=== PATIENT | female | born 1945 | race Caucasian/White ===

== ENCOUNTER 2021-08-17 12:43 | Emergency (ER) | payer OTHER, BC ==
[~2021-08-17] VITALS: Ht 165.1 cm; Wt 68.0 kg
[2021-08-17 13:46] VITALS: BP 159/75
[2021-08-17] MEDS ORDERED: HYDROCODON-ACE1 EAC7 PO (14:42)
[2021-08-20] MEDS ORDERED: PRINIVIL40 MG PO (15:30)
[2021-08-20] MEDS ORDERED: VITAMIN D325 MC3 PO (15:31)
[2021-08-20] MEDS ORDERED: CALCIUM + VITA1 EACH PO (15:31)
[2021-08-20] MEDS ORDERED: ASA81BEC PO (15:31)
[2021-08-20] MEDS ORDERED: MYVITALIFE1 EACH PO (15:31)
[2021-08-20] MEDS ORDERED: HYDROCODON-ACE1 EAC7 PO (15:32)
== END 2021-08-17 14:53 | disposition home or self-care (01) ==
LOC: ER 12:43
DX: M25.561 Pain in right knee (principal); W11.XXXA Fall on and from ladder, initial encounter; Y93.89 Activity, other specified; Y92.89 Other specified places as the place of occurrence of the external cause; Y99.8 Other external cause status

== ENCOUNTER 2021-08-21 06:44 | Day surgery (SDC) | payer OTHER, BC ==
[~2021-08-21] VITALS: Ht 165.1 cm; Wt 68.0 kg
[~2021-08-21 06:44] MED LIST: ASA81BEC PO; CALCIUM + VITA1 EACH PO; HYDROCODON-ACE1 EAC7 PO; MYVITALIFE1 EACH PO; PRINIVIL40 MG PO; VITAMIN D325 MC3 PO
[2021-08-21 08:39] VITALS: BP 154/60
[2021-08-21 12:15] VITALS: BP 154/60
--- NOTE | 2021-08-21 16:04 | EKG ---
[address] [address] ELECTROCARDIOGRAM REPORT Name: SANTOS GRANT Room #: [facility]#: [id number] Admission: 08/21/21 Attend Phys: Lillian Hennessy Discharge: 08/21/21 Date of : 45 Report #: [id number] [facility] Test Date: 2021-08-21 Test Time: 08:00:49 Pat Name: SANTOS GRANT Department: Room: 150 6 Gender: F Slate Picker: EMELYN : 1945 Requested By: Ge Oliva Order Number: [id number] MD: Josh Sutton Measurements Intervals [place] Rate: 92 P: 51 CO: 171 QRS: 52 QRSD: 123 T: 9 QT: 343 QTc: 425 Interpretive Statements Sinus rhythm Probable left atrial enlargement Right bundle branch block Compared to ECG 01/10/2006 16:14:52 Right bundle-branch block now present ST (T wave) deviation no longer present Electronically Signed On 08-21-2021 16:04:27 [employer] by Josh Sutton [email or web address] <ELECTRONICALLY SIGNED> By: Josh Sutton MD, [facility] 08/21/21 1604 08 08 Josh Sutton MD, [facility] /EPI
== END 2021-08-21 13:45 | disposition home or self-care (01) ==
LOC: OR 06:44 → TBA 06:44 → OR 13:45
PROVIDERS: ATTEND Orthopaedic Surgery
DX: S82.121A Displaced fracture of lateral condyle of right tibia, initial encounter for closed fracture (principal); I10 Essential (primary) hypertension; Z98.890 Other specified postprocedural states; Z79.899 Other long term (current) drug therapy; Z20.822 Contact with and (suspected) exposure to COVID-19; Z98.42 Cataract extraction status, left eye; Z98.41 Cataract extraction status, right eye; X58.XXXA Exposure to other specified factors, initial encounter; Y93.89 Activity, other specified; Y92.89 Other specified places as the place of occurrence of the external cause; Y99.8 Other external cause status
CPT/HCPCS: 50010; 50101; 50386; 51132; 51412; 56525; 56667; 57091; 58409; 58411; 58528; 58982; 59064; 59069; 59070; 62110; 62900; 70005